=== PATIENT | female | born 1980 | race African-American/Black ===

== ENCOUNTER 2018-11-20 06:33 | Inpatient (IN) | payer BC ==
[~2018-11-20] VITALS: Ht 160 cm; Wt 256.3 kg
--- NOTE | 2018-11-20 07:08 | NUR ---
bedside report handed off to aníbal grace via sbar. pt stable, call light within reach, will continue to monitor.
[2018-11-20 08:22] LABS: % SATURATION 4 % (15-55); IRON 31 ug/dl (35-150); TOTAL IRON BIND CAPACITY 628 ug/dl (260-445)
[2018-11-20 08:25] LABS: UNSAT IRON BIND CAPACITY 597 ug/dl (150-375)
[2018-11-20 08:46] LABS: EOSINOPHILS 0.9 % (0-7); IMMATURE GRANULOCYTES 0.4 % (0-5); LYMPHOCYTES 15.3 % (15-50); MCV 66.3 fL (80.0-100.0); MEAN PLATELET VOLUME 8.4 fL (7.4-10.4); MONOCYTES 8.1 % (2-11); NEUTROPHILS 74.3 % (40-80); PLATELET COUNT 349 10x3/uL (130-400); RBC 3.77 10x6/uL (4.00-5.40); RDW 25.5 % (11.5-14.5); WBC 12.3 10x3/uL (4.8-10.8)
[2018-11-20 08:50] LABS: FERRITIN 6 ng/mL (3-244); HEMOGLOBIN 6.5 g/dL (12-16); MCH 17.2 pg (26.0-34.0)
[2018-11-20 08:51] LABS: ALBUMIN 2.7 g/dL (3.4-5.0); ANION GAP 13.5 mmol/L (8-16); BILIRUBIN - TOTAL 0.83 mg/dL (0.2-1.3); CALCIUM 8.7 mg/dL (8.5-10.1); CARBON DIOXIDE 30.1 mmol/L (21.0-32.0); CREATININE - SERUM 1.1 mg/dL (0.6-1.3); POTASSIUM - SERUM 4.6 mmol/L (3.5-5.1); PROTEIN - SERUM 7.9 g/dL (6.4-8.2)
--- NOTE | 2018-11-20 09:55 | NUR ---
SPOKE TO DR LOREDO REGARDING PATIENT'S FAMILY'S REQUEST FOR PAIN MEDICINE X 2. DR. LOREDO ORDERED TYLENOL. ADMISTERED PER APR.
--- NOTE | 2018-11-20 10:59 | NUR ---
SPOKE TO DR LOREDO REGARDING HGB OF 6.5. NO NEW ORDERS.
[2018-11-20 12:01] VITALS: BP 130/88
[2018-11-20 14:01] VITALS: BP 12/68
--- NOTE | 2018-11-20 15:04 | NUR ---
PT TO BE ADMITTED TO ROOM 2201. REPORT TO MATEO AT 2261.
[2018-11-20 16:50] VITALS: BP 115/74; BMI 100.3
--- NOTE | 2018-11-20 16:56 | MORECARE ---
CASE MANAGEMENT DISCHARGE SUMMARY PATIENT: REYNALDO DEE UNIT: [id number] ADM DATE: 11/20/18 AGE: 38 : 78 SEX: F ROOM/BED: D.2201 AUTHOR: SANDI WELLS PHYSICIAN: REFERRING PHYSICIAN: LIZETH LOREDO MD DATE OF SERVICE: 11/20/18 Discharge Plan Patient Name: REYNALDO DEE [facility] [facility] 1980 Planned Disposition: Home Anticipated Discharge Date: 11/22/18 Discharge Date: Expected LOS: 2 Initial Reviewer: [email or web address] Initial Review Date: 11/20/2018 Generated: 11/20/18 5:55 pm DCPIA - Discharge Planning Initial Assessment Updated by [email or web address]: Reyna Talamantes on 11/20/18 4:53 pm * Is the patient Alert and Oriented? Yes * How many steps to enter\exit or inside your home? none * PCP Dr. Alona Figueroa Totz * Pharmacy [facility] * Preadmission Environment Home with Family * ADLs Partial Dependent * Partial ADLs (Assistance needed) Ambulation Bathing Transfers * Equipment Shower Chair * List name and contact numbers for known caregivers / representatives who currently or will assist patient after discharge: Kody Dee - [facility] - [phone] * Verbal permission to speak to the caregivers and representatives has been obtained from the patient. Yes * Community resources currently utilized None * Additional services required to return to the preadmission environment? No * Can the patient safely return to the preadmission environment? Yes * Has this patient been hospitalized within the prior 30 days at any hospital? No Patient Name: REYNALDO DEE Page [phone] at 1656 All edits/amendments must be made on the electronic document DICTATION DATE: 11/20/181654 WIDE AREA NETWORK ADMINISTRATOR: DONIS 11/20/181654 RPT#: [id number] DC DATE: STATUS: ADM IN [facility] [address] [place] [address] END OF REPORT
--- NOTE | 2018-11-20 17:03 | MORECARE ---
CASE MANAGEMENT DISCHARGE SUMMARY PATIENT: REYNALDO DEE UNIT: [id number] ADM DATE: 11/20/18 AGE: 38 : 78 SEX: F ROOM/BED: D.2201 AUTHOR: PRISCILLADOC PHYSICIAN: REFERRING PHYSICIAN: LIZETH LOREDO MD DATE OF SERVICE: 11/20/18 Discharge Plan Patient Name: REYNALDO DEE Facility: [facility]:[place] : 1980 Planned Disposition: Home Anticipated Discharge Date: 11/22/18 Discharge Date: Expected LOS: 2 Initial Reviewer: [email or web address] Initial Review Date: 11/20/2018 Generated: 11/20/18 6:03 pm DCP- Discharge Planning Updated by [email or web address]: Reyna Talamantes on 11/20/18 3:[address] DC PLAN: Return home with her . ANTICIPATED DC NEEDS: Denied known dc needs in ER. CM met with patient and multiple other family members in the room to complete initial dc planning assessment. CM educated patient on the CM role and verbal consent given by patient to complete assessment. CM verified patient's address, phone number, and emergency contact phone numbers. Patient lives at home with her . She reports she is usually independent in her care but for the last week or so she has required assistance with ambulating, transferring, and bathing. At discharge patient plans to return home with her and feels this is a safe discharge. CM discussed availability of home health, rehab services, and medical equipment. Patient denied known discharge needs at this time. Patient reports her will transport her home at time of discharge. CM will continue to follow and will assist as needed with dc plans/needs. Reyna Talamantes RN, [facility] DCPIA - Discharge Planning Initial Assessment Updated by [email or web address]: Reyna Talamantes on 11/20/18 4:53 pm * Is the patient Alert and Oriented? Yes * How many steps to enter\exit or inside your home? none * PCP Dr. Alona Kirkpatrick * [facility] * Preadmission Environment Home with Family * ADLs Partial Dependent * Partial ADLs (Assistance needed) Ambulation Bathing Transfers * Equipment Shower Chair * List name and contact numbers for known caregivers / representatives who currently or will assist patient after discharge: Kody Dee - [facility] - [phone] * Verbal permission to speak to the caregivers and representatives has been obtained from the patient. Yes * Community resources currently utilized None * Additional services required to return to the preadmission environment? No * Can the patient safely return to the preadmission environment? Yes * Has this patient been hospitalized within the prior 30 days at any hospital? No Last DP export: 11/20/18 3:55 p Patient Name: REYNALDO DEE Page [phone] at 1703 All edits/amendments must be made on the electronic document DICTATION DATE: 11/20/181702 PAPER BAG MACHINE OPERATOR: DONIS 11/20/181702 RPT#: [id number] DC DATE: STATUS: ADM IN [facility] [address] [place] [address] END OF REPORT
[2018-11-20 21:28] VITALS: BP 154/86
[2018-11-21 01:13] VITALS: BP 139/78
--- NOTE | 2018-11-21 03:56 | NUR ---
I have reviewed this patient and I concur with the Shift Assessment completed by the Licensed Practical Nurse today this shift.
[2018-11-21 05:45] VITALS: BP 119/67
[2018-11-21 06:38] LABS: EOSINOPHILS 1.5 % (0-7); IMMATURE GRANULOCYTES 0.5 % (0-5); LYMPHOCYTES 15.2 % (15-50); MCHC 25.8 g/dL (31.0-37.0); MEAN PLATELET VOLUME 8.5 fL (7.4-10.4); MONOCYTES 8.7 % (2-11); NEUTROPHILS 73.1 % (40-80); PLATELET COUNT 338 10x3/uL (130-400); RBC 3.58 10x6/uL (4.00-5.40); RDW 25.1 % (11.5-14.5); WBC 10.5 10x3/uL (4.8-10.8)
[2018-11-21 06:42] LABS: MCH 17.3 pg (26.0-34.0)
[2018-11-21 06:43] LABS: HEMOGLOBIN 6.2 g/dL (12-16)
[2018-11-21 06:45] LABS: APTT 28.7 SECONDS (22.8-39.4); INR 1.29 (0.85-1.17); PROTIME 15.5 SECONDS (11.6-15.0)
[2018-11-21 07:09] LABS: ANION GAP 6.6 mmol/L (8-16); CALCIUM 8.4 mg/dL (8.5-10.1); CARBON DIOXIDE 34.7 mmol/L (21.0-32.0); MAGNESIUM - SERUM 2.4 mg/dL (1.8-2.4); PHOSPHOROUS 4.8 mg/dL (2.5-4.9); POTASSIUM - SERUM 4.3 mmol/L (3.5-5.1); THYROID STIMULATING HORMONE 4.94 uIU/mL (0.36-3.74)
[2018-11-21 08:11] VITALS: BP 115/62
--- NOTE | 2018-11-21 09:42 | NUR ---
PT ALERT X 4. BREATH SOUNDS CLEAR BILAT, 4L O2 PER NC. MIDLINE TO RIGHT UPPER ARM, PATENT, DRESSING CDI. PT REPORTING NO PAIN AT THIS TIME. CRUSTY AREA AROUND UMBILLICUS, YEAST TO ABDOMINAL FOLD. BLE EDEMA +2. FAMILY AT BEDSIDE. BED LOW, CALL LIGHT IN REACH. NO OTHER NEEDS AT THIS TIME.
--- NOTE | 2018-11-21 10:09 | MORECARE ---
CASE MANAGEMENT DISCHARGE SUMMARY PATIENT: REYNALDO DEE UNIT: [id number] ADM DATE: 11/20/18 AGE: 38 : 78 SEX: F ROOM/BED: D.2201 AUTHOR: PRISCILLADOC PHYSICIAN: REFERRING PHYSICIAN: LIZETH LOREDO MD DATE OF SERVICE: 11/21/18 Discharge Plan Patient Name: REYNALDO DEE Facility: [facility]:[place] : 1980 Planned Disposition: Home Anticipated Discharge Date: 11/22/18 Discharge Date: Expected LOS: 2 Initial Reviewer: [email or web address] Initial Review Date: 11/20/2018 Generated: 11/21/18 11:09 am DCP- Discharge Planning Updated by [email or web address]: Reyna Talamantes on 11/20/18 3:[address] DC PLAN: Return home with her . ANTICIPATED DC NEEDS: Denied known dc needs in ER. CM met with patient and multiple other family members in the room to complete initial dc planning assessment. CM educated patient on the CM role and verbal consent given by patient to complete assessment. CM verified patient's address, phone number, and emergency contact phone numbers. Patient lives at home with her . She reports she is usually independent in her care but for the last week or so she has required assistance with ambulating, transferring, and bathing. At discharge patient plans to return home with her and feels this is a safe discharge. CM discussed availability of home health, rehab services, and medical equipment. Patient denied known discharge needs at this time. Patient reports her will transport her home at time of discharge. CM will continue to follow and will assist as needed with dc plans/needs. Reyna Talamantes RN, [facility] DCPIA - Discharge Planning Initial Assessment Updated by [id number]: Reyna Talamantes on 11/20/18 4:53 pm * Is the patient Alert and Oriented? Yes * How many steps to enter\exit or inside your home? none * PCP Dr. Alona Kirkpatrick * [facility] * Preadmission Environment Home with Family * ADLs Partial Dependent * Partial ADLs (Assistance needed) Ambulation Bathing Transfers * Equipment Shower Chair * List name and contact numbers for known caregivers / representatives who currently or will assist patient after discharge: Kody Dee - [facility] - [phone] * Verbal permission to speak to the caregivers and representatives has been obtained from the patient. Yes * Community resources currently utilized None * Additional services required to return to the preadmission environment? No * Can the patient safely return to the preadmission environment? Yes * Has this patient been hospitalized within the prior 30 days at any hospital? No Last DP export: 11/20/18 4:03 p Patient Name: REYNALDO DEE Page [phone] at 1009 All edits/amendments must be made on the electronic document DICTATION DATE: 11/21/18 100 MOTORCYCLE REPAIR SHOP SUPERVISOR: DONIS 11/21/18 1008 RPT#: [id number] DC DATE: STATUS: ADM IN [facility] [address] [place] [address] END OF REPORT
[2018-11-21 13:02] VITALS: Ht 160 cm; Wt 256.3 kg
[2018-11-21 17:30] LABS: APPEARANCE CLEAR (CLEAR); BILIRUBIN NEGATIVE (NEGATIVE); COLOR YELLOW (YELLOW); GLUCOSE NEGATIVE (NEGATIVE); KETONE NEGATIVE (NEGATIVE); NITRITE NEGATIVE (NEGATIVE); PROTEIN TRACE mg/dL (NEGATIVE); SPECIFIC GRAVITY 1.015 (1.005-1.020); UROBILINOGEN NORMAL (NORMAL)
[2018-11-21 17:31] LABS: BACTERIA FEW /hpf (NEGATIVE); EPITHELIAL CELLS 0-5 /hpf (0-5); WHITE CELLS - URINE 0-5 /hpf (NEGATIVE)
--- NOTE | 2018-11-21 18:30 | NUR ---
A/O WITH NO SIGNS OF DISTRESS. MIDLINE TO THE RT UPPER ARM WITH NO REDNESS OR SWELLING NOTED AT SITE. NC @ 4L AND BE IN PLACE. NOTIFIED GUANACO LOCK, OF HGB-7.7. HE SAID THAT THE LEVEL WAS FINE AND DID NOT REQUIRE ANY ACTION. FAMILY REQUESTED FOR A1C. DENIES ANY FURTHER NEEDS AT THIS TIME. CONTINUE WITH PLAN OF CARE.
[2018-11-21 19:12] LABS: BASOPHILS 0.7 % (0-2); EOSINOPHILS 2.9 % (0-7); IMMATURE GRANULOCYTES 0.3 % (0-5); LYMPHOCYTES 12.6 % (15-50); MCHC 27.5 g/dL (31.0-37.0); MEAN PLATELET VOLUME 8.6 fL (7.4-10.4); MONOCYTES 7.1 % (2-11); NEUTROPHILS 76.4 % (40-80); PLATELET COUNT 308 10x3/uL (130-400); RBC 4.04 10x6/uL (4.00-5.40); RDW 26.1 % (11.5-14.5)
[2018-11-21 19:35] LABS: HEMOGLOBIN 7.7 g/dL (12-16); MCH 19.1 pg (26.0-34.0); MCV 69.3 fL (80.0-100.0); WBC 13.5 10x3/uL (4.8-10.8)
[2018-11-21 20:00] VITALS: BP 108/55
[2018-11-22] VITALS (12 sets, daily range): BP systolic 105–139; BP diastolic 58–83
[2018-11-22 05:36] LABS: BASOPHILS 0.5 % (0-2); EOSINOPHILS 2.8 % (0-7); HEMATOCRIT 26.9 % (36.0-48.0); IMMATURE GRANULOCYTES 0.6 % (0-5); LYMPHOCYTES 13.7 % (15-50); MCHC 27.1 g/dL (31.0-37.0); MCV 69.2 fL (80.0-100.0); MEAN PLATELET VOLUME 8.6 fL (7.4-10.4); MONOCYTES 7.8 % (2-11); NEUTROPHILS 74.6 % (40-80); PLATELET COUNT 301 10x3/uL (130-400); RBC 3.89 10x6/uL (4.00-5.40); RDW 26.7 % (11.5-14.5); WBC 11.7 10x3/uL (4.8-10.8)
[2018-11-22 05:41] LABS: ANION GAP 8.7 mmol/L (8-16); CALCIUM 8.4 mg/dL (8.5-10.1); CARBON DIOXIDE 33.7 mmol/L (21.0-32.0); MAGNESIUM - SERUM 2.2 mg/dL (1.8-2.4); POTASSIUM - SERUM 4.4 mmol/L (3.5-5.1)
[2018-11-22 06:22] LABS: HEMOGLOBIN 7.3 g/dL (12-16); MCH 18.8 pg (26.0-34.0)
--- NOTE | 2018-11-22 06:49 | NUR ---
NOTIFIED GUANACO LOCK OF CRITICAL HGB-7.3. STATED THAT THERE WAS NO ACTION NEEDED, DR. LOREDO WILL BE BY LATER. WILL PASS ON IN REPORT. CONTINUE WITH PLAN OF CARE.
--- NOTE | 2018-11-22 07:00 | NUR ---
DRESSING CHANGE TO THE RT UPPER ARM. SOME REDNESS NOTED AROUND SITE. DENIES FURTHER NEEDS. CONTINUE WITH PLAN OF CARE.
--- NOTE | 2018-11-22 19:13 | NUR ---
PT IS WITHOUT DISTRESS.CONT PLAN OF CARE
--- NOTE | 2018-11-22 20:00 | NUR ---
1ST UNIT PRBC'S INFUSION COMPLETE. FLUSHED LINE WITH NS AND HUNG SCHEDULED IRON. PT C/O WEAKNESS AND APPEARS LETHARGIC. COMPLETE ASSESSMENT PER FLOW-SHEET. OXYGEN @ 4L/NC. VITALS SIGNS STABLE. WILL CONTINUE TO MONITOR.
--- NOTE | 2018-11-22 22:00 | NUR ---
VITALS SIGNS STABLE. BEGAN TRANSFUSION OF 2ND UNIT PRBC'S. VITALS SIGNS REMAIN STABLE AFTER 15 MINUTES OF INFUSING - INCREASED RATE OF INFUSION. NO TRANSFUSION REACTION NOTED SO FAR. WILL CONTINUE TO MONITOR.
[2018-11-23] VITALS: BP 116/55
--- NOTE | 2018-11-23 00:09 | NUR ---
PRBC'S TRANSFUSION COMPLETE. VITAL SIGNS STABLE. NO ADVERSE REACTIONS NOTED. WILL CONTINUE TO MONITOR.
--- NOTE | 2018-11-23 02:00 | NUR ---
PT TOO WEAK TO AMBULATE TO BATHROOM. PT HAD LARGE SOFT BROWN STOOL ON BEDPAN. BEDBATH GIVEN. PADS AND GOWN CHANGED. PULLED PT UP AND REPOSITIONED. NO OTHER NEEDS. WILL CONTINUE TO MONITOR.
[2018-11-23 04:00] VITALS: BP 120/56
[2018-11-23 06:06] LABS: ANION GAP 10.9 mmol/L (8-16); CALCIUM 8.4 mg/dL (8.5-10.1); CARBON DIOXIDE 32.4 mmol/L (21.0-32.0); MAGNESIUM - SERUM 2.2 mg/dL (1.8-2.4); PHOSPHOROUS 4.1 mg/dL (2.5-4.9); POTASSIUM - SERUM 4.3 mmol/L (3.5-5.1)
[2018-11-23 06:13] LABS: BASOPHILS 0.6 % (0-2); EOSINOPHILS 2.1 % (0-7); HEMATOCRIT 31.6 % (36.0-48.0); HEMOGLOBIN 8.6 g/dL (12-16); IMMATURE GRANULOCYTES 0.7 % (0-5); LYMPHOCYTES 10.7 % (15-50); MCH 20.2 pg (26.0-34.0); MCHC 27.2 g/dL (31.0-37.0); MEAN PLATELET VOLUME 8.7 fL (7.4-10.4); MONOCYTES 9.2 % (2-11); NEUTROPHILS 76.7 % (40-80); PLATELET COUNT 244 10x3/uL (130-400); RBC 4.26 10x6/uL (4.00-5.40); RDW 27.4 % (11.5-14.5); WBC 13.6 10x3/uL (4.8-10.8)
[2018-11-23 06:29] LABS: MCV 74.2 fL (80.0-100.0)
[2018-11-23 08:47] VITALS: BP 102/58
--- NOTE | 2018-11-23 10:52 | NUR ---
PATIENT REQUEST SOMETHING FOR HER DRY COUGH. I HAVE TALKED TO YARELIS LOCK ABOUT THIS. PATIENT WEIGHT IS 560.9 LB ACCORDING TO THE BED SCALE. ALL COVERS REMOVED EXCEPT THE SHEET ON HER AND THE PILLOW BEHIND HER HEAD. PATIENT REFUSING BIPAP. RESP TECH TURNED O2 UP TO 6L. PATIENT SAT IS 97%. TALKING PATIENT O2 SAT DROPPED TO 94%. CONCERNED THAT NO CT IS ABLE TO BE TAKEN OF HER ABDOMEN. WANTS AN ABDOMINAL ULTRASOUND. CONCERNED THAT SHE HAS A FIBROID TUMOR. CL IN PLACE. 2 ORANGE JUICES REQUESTED AND RECIEVED. MOTHER IN ROOM. INFORMED MOTHER TO LET ME KNOW IF PATIENT FALLS ASLEEP SO I CAN MONITOR HER PULSE OX WHILE SHE IS SLEEPING. WCTM
[2018-11-23 13:38] VITALS: BP 106/61
--- NOTE | 2018-11-23 14:55 | NUR ---
OT NOTE: PT COMPLETED LUE AROM EXS. PT COMPLETED BED MOB TASK WITH SIDE RAIL. PT STATED SHE IS TOO WEAK TO SIT UP. THANK YOU, SHABBIR PIÑA
[2018-11-23 16:45] VITALS: BP 110/62
--- NOTE | 2018-11-23 17:29 | NUR ---
ATTEMPTED TO PLACE PT ON BIPAP THIS MORNING WITH SETTINGS OF 16/8 PT REFUSED TO WEAR THE BIPAP
--- NOTE | 2018-11-23 17:30 | NUR ---
ATTEMPTED TO PLACE PATIENT AGAIN ON BIPAP AT 1400. PATIENT TRIED HOLDING THE BIPAP MASK ON HER FACE WITH A LOWER SETTING OF 12/5 BUT PT STILL REFUSED AGAIN TO WEAR IT AND SAID IT WAS TO MUCH FOR HER TO HANDLE
--- NOTE | 2018-11-23 18:02 | MORECARE ---
CASE MANAGEMENT DISCHARGE SUMMARY PATIENT: REYNALDO DEE UNIT: [id number] ADM DATE: 11/20/18 AGE: 38 : 78 SEX: F ROOM/BED: D.2201 AUTHOR: SANDI WELLS PHYSICIAN: REFERRING PHYSICIAN: LIZETH LOREDO MD DATE OF SERVICE: 11/23/18 Discharge Plan Patient Name: REYNALDO DEE Facility: [facility]:[place] : 1980 Planned Disposition: Home Anticipated Discharge Date: 11/22/18 Discharge Date: Expected LOS: 2 Initial Reviewer: [email or web address] Initial Review Date: 11/20/2018 Generated: 11/23/18 7:01 pm Comments DCP- Discharge Planning Updated by [email or web address]: Lisset Barrera on 11/23/18 4:[address] DC PLAN: Return home with her . ANTICIPATED DC NEEDS: Denied known dc needs in ER. CM met with patient and multiple other family members in the room to complete initial dc planning assessment. CM educated patient on the CM role and verbal consent given by patient to complete assessment. CM verified patient's address, phone number, and emergency contact phone numbers. Patient lives at home with her . She reports she is usually independent in her care but for the last week or so she has required assistance with ambulating, transferring, and bathing. At discharge patient plans to return home with her and feels this is a safe discharge. CM discussed availability of home health, rehab services, and medical equipment. Patient denied known discharge needs at this time. Patient reports her will transport her home at time of discharge. CM will continue to follow and will assist as needed with dc plans/needs. Reyna Talamantes RN, [facility] DCPIA - Discharge Planning Initial Assessment Updated by [email or web address]: Reyna Talamantes on 11/20/18 4:53 pm * Is the patient Alert and Oriented? Yes * How many steps to enter\exit or inside your home? none * PCP Dr. Alona Kirkpatrick * [facility] * Preadmission Environment Home with Family * ADLs Partial Dependent * Partial ADLs (Assistance needed) Ambulation Bathing Transfers * Equipment Shower Chair * List name and contact numbers for known caregivers / representatives who currently or will assist patient after discharge: Kody Dee - - [phone] * Verbal permission to speak to the caregivers and representatives has been obtained from the patient. Yes * Community resources currently utilized None * Additional services required to return to the preadmission environment? No * Can the patient safely return to the preadmission environment? Yes * Has this patient been hospitalized within the prior 30 days at any hospital? No Last DP export: 11/21/18 9:09 a Patient Name: REYNALDO DEE Page [phone] at 1802 All edits/amendments must be made on the electronic document DICTATION DATE: 11/23/181800 BRIQUETTE MACHINE OPERATOR: DONIS 11/23/181800 RPT#: [id number] DC DATE: STATUS: ADM IN [facility] [address] [place] [address] END OF REPORT
--- NOTE | 2018-11-23 18:09 | MORECARE ---
CASE MANAGEMENT DISCHARGE SUMMARY PATIENT: REYNALDO DEE UNIT: [id number] ADM DATE: 11/20/18 AGE: 38 : 78 SEX: F ROOM/BED: D.2201 AUTHOR: PRISCILLA,DOC PHYSICIAN: REFERRING PHYSICIAN: LIZETH LOREDO MD DATE OF SERVICE: 11/23/18 Discharge Plan Patient Name: REYNALDO DEE Facility: [facility]:[place] : 1980 Planned Disposition: Home Anticipated Discharge Date: 11/22/18 Discharge Date: Expected LOS: 2 Initial Reviewer: [email or web address] Initial Review Date: 11/20/2018 Generated: 11/23/18 7:09 pm DCP- Discharge Planning Updated by [email or web address]: Lisset Barrera on 11/23/18 5:[address] Patient is on 4L O2 NC with a pox of 85-87%, When O2 is removed drops to 73-76%. MARCELA with [facility] for home O2, Holland here and clinical information received. She will deliver to hospital when patient is ready for DC. After speaking with Bebo he would like to keep the patient through the weekend to observe her and treat her resp status. He would also like her to have a Triliogy, but will need prior auth and on the weekend that will not happen. Will need to send to [facility] on Monday. Jana LOCK spoke with patient and mother at length about plan of care. Patient is tearful and scared. Mom at bedside questions answered. Mom request a wheelchair for her, but I explained to her that I did not think that insurance would not pay for one when she was ambulatory. I did ask Holland with [facility] if they carried bariatric ones and they do not. CM to follow and assist with DC planning DCP- Discharge Planning Updated by [id number]: Lisset Barrera on 11/23/18 4:[address] DC PLAN: Return home with her . ANTICIPATED DC NEEDS: Denied known dc needs in ER. CM met with patient and multiple other family members in the room to complete initial dc planning assessment. CM educated patient on the CM role and verbal consent given by patient to complete assessment. CM verified patient's address, phone number, and emergency contact phone numbers. Patient lives at home with her . She reports she is usually independent in her care but for the last week or so she has required assistance with ambulating, transferring, and bathing. At discharge patient plans to return home with her and feels this is a safe discharge. CM discussed availability of home health, rehab services, and medical equipment. Patient denied known discharge needs at this time. Patient reports her will transport her home at time of discharge. CM will continue to follow and will assist as needed with dc plans/needs. Reyna Talamantes RN, [facility] DCPIA - Discharge Planning Initial Assessment Updated by [email or web address]: Reyna Talamantes on 11/20/18 4:53 pm * Is the patient Alert and Oriented? Yes * How many steps to enter\exit or inside your home? none * PCP Dr. Alona Kirkpatrick * [facility] * Preadmission Environment Home with Family * ADLs Partial Dependent * Partial ADLs (Assistance needed) Ambulation Bathing Transfers * Equipment Shower Chair * List name and contact numbers for known caregivers / representatives who currently or will assist patient after discharge: Kody Dee - - [phone] * Verbal permission to speak to the caregivers and representatives has been obtained from the patient. Yes * Community resources currently utilized None * Additional services required to return to the preadmission environment? No * Can the patient safely return to the preadmission environment? Yes * Has this patient been hospitalized within the prior 30 days at any hospital? No Coverage Notice Reviewer: [email or web address] Henry Barrera Notice Issued Date-Time: 11/23/2018 15:00 Notice Type: Patient Choice Letter Notice Delivered To: Family Member Relationship to Patient: Mother Switch Foreman Name: monse Delivery Method: - Alysha Days: Prior Verbal Notification: Recipient Understood Notice: Recipient Signature: Med Rec Note Co-signed by Attending: Coverage Notice Comment: Last DP export: 11/23/18 5:02 p Patient Name: REYNALDO DEE Page [phone] at 1809 All edits/amendments must be made on the electronic document DICTATION DATE: 11/23/181808 BAND SCROLL SAW OPERATOR: DONIS 11/23/181808 RPT#: [id number] DC DATE: STATUS: ADM IN [facility] [address] [place] [address] END OF REPORT
[2018-11-23 18:24] LABS: HEMATOCRIT 32.3 % (36.0-48.0); HEMOGLOBIN 8.7 g/dL (12-16)
[2018-11-23 20:00] VITALS: BP 106/55
[2018-11-24] VITALS: BP 130/51
--- NOTE | 2018-11-24 02:00 | NUR ---
PT IS NOT GOING TO WEAR THE BIPAP. IT HAS BEEN DISCUSSED WITH HER AND SHE WILL NOT WEAR IT.
[2018-11-24 06:44] LABS: CALCIUM 8.6 mg/dL (8.5-10.1); CARBON DIOXIDE 36.2 mmol/L (21.0-32.0); CREATININE - SERUM 0.9 mg/dL (0.6-1.3); MAGNESIUM - SERUM 2.1 mg/dL (1.8-2.4); PHOSPHOROUS 3.9 mg/dL (2.5-4.9); POTASSIUM - SERUM 4.2 mmol/L (3.5-5.1)
[2018-11-24 06:49] LABS: BASOPHILS 0.6 % (0-2); EOSINOPHILS 2.7 % (0-7); HEMATOCRIT 32.3 % (36.0-48.0); HEMOGLOBIN 8.6 g/dL (12-16); IMMATURE GRANULOCYTES 0.7 % (0-5); LYMPHOCYTES 12.8 % (15-50); MCH 20.2 pg (26.0-34.0); MCHC 26.6 g/dL (31.0-37.0); MCV 75.8 fL (80.0-100.0); MEAN PLATELET VOLUME 8.7 fL (7.4-10.4); MONOCYTES 7.8 % (2-11); NEUTROPHILS 75.4 % (40-80); RBC 4.26 10x6/uL (4.00-5.40); RDW 28.8 % (11.5-14.5); WBC 12.6 10x3/uL (4.8-10.8)
[2018-11-24 06:51] LABS: PLATELET COUNT 296 10x3/uL (130-400)
--- NOTE | 2018-11-24 07:15 | NUR ---
PT RESTING IN BED WITH EYES CLOSED, FAMILY AT THE BEDSIDE. EASILY AROUSED TO SPEECH, ALERT AND ORIENTED. CURRENTLY RCVING 4L VIA NC. RIGHT MIDLINE SALINE LOCKED. NO S/S OF DISTRESS, DENIES NEEDS AT THIS TIME, WILL CONT TO MONITOR.
[2018-11-24 08:46] VITALS: BP 128/80
--- NOTE | 2018-11-24 10:26 | NUR ---
PT RESTING IN BED ASKING ABOUT DC PAPERS, I INFORMED HER THERE HAS BEEN NO DC ORDERS PUT IN AND SHE SAID SHE IS LEAVING TODAY WITH OR WITHOUT THEM. INFORMED ASHVIN SCHWAB WHO IS GOING TO GO TALK TO HER.
--- NOTE | 2018-11-24 11:04 | NUR ---
SPOKE WITH AT THE REQUEST OF ASHVIN SCHWAB ABOUT APPROVING A DC. HE SAID HE WAS OK WITH IT IF SHE IS AWARE AND HAS A WAY TO OBTAIN TRILOGY FOR HOME AND KNOWS TO HAVE A FOLLOW UP APPT WITH PULMONOLIGIST AFTER DC.
--- NOTE | 2018-11-24 11:43 | NUR ---
CONFIRMED WITH KENYA SCHWAB APN, PT HAS NO DISCHARGE MEDICATIONS.
--- NOTE | 2018-11-24 13:17 | NUR ---
MIDLINE IV REMOVED AND BE CATHETER REMOVED.
--- NOTE | 2018-11-24 13:50 | NUR ---
PT DC`D HOME VIA WHEELCHAIR WITH FAMILY.
--- NOTE | 2018-11-24 18:36 | MORECARE ---
CASE MANAGEMENT DISCHARGE SUMMARY PATIENT: REYNALDO DEE UNIT: [id number] ADM DATE: 11/20/18 AGE: 38 : 78 SEX: F ROOM/BED: D.2201 AUTHOR: PRISCILLA,DOC PHYSICIAN: REFERRING PHYSICIAN: LIZETH LOREDO MD DATE OF SERVICE: 11/24/18 Discharge Plan Patient Name: REYNALDO DEE Facility: [facility]:[place] : 1980 Planned Disposition: Home Anticipated Discharge Date: 11/22/18 Discharge Date: 11/24/2018 Expected LOS: 2 Initial Reviewer: [id number] Initial Review Date: 11/20/2018 Generated: 11/24/18 7:36 pm DCP- Discharge Planning Updated by [email or web address]: Lisset Barrera on 11/23/18 5:[address] Patient is on 4L O2 NC with a pox of 85-87%, When O2 is removed drops to 73-76%. MARCELA with [facility] for home O2, Holland here and clinical information received. She will deliver to hospital when patient is ready for DC. After speaking with Bebo he would like to keep the patient through the weekend to observe her and treat her resp status. He would also like her to have a Triliogy, but will need prior auth and on the weekend that will not happen. Will need to send to [facility] on Monday. Jana LOCK spoke with patient and mother at length about plan of care. Patient is tearful and scared. Mom at bedside questions answered. Mom request a wheelchair for her, but I explained to her that I did not think that insurance would not pay for one when she was ambulatory. I did ask Holland with [facility] if they carried bariatric ones and they do not. CM to follow and assist with DC planning DCP- Discharge Planning Updated by [id number]: Lisset Barrera on 11/23/18 4:[address] DC PLAN: Return home with her . ANTICIPATED DC NEEDS: Denied known dc needs in ER. CM met with patient and multiple other family members in the room to complete initial dc planning assessment. CM educated patient on the CM role and verbal consent given by patient to complete assessment. CM verified patient's address, phone number, and emergency contact phone numbers. Patient lives at home with her . She reports she is usually independent in her care but for the last week or so she has required assistance with ambulating, transferring, and bathing. At discharge patient plans to return home with her and feels this is a safe discharge. CM discussed availability of home health, rehab services, and medical equipment. Patient denied known discharge needs at this time. Patient reports her will transport her home at time of discharge. CM will continue to follow and will assist as needed with dc plans/needs. Reyna Talamantes RN, [facility] DCPIA - Discharge Planning Initial Assessment Updated by [email or web address]: Reyna Talamantes on 11/20/18 4:53 pm * Is the patient Alert and Oriented? Yes * How many steps to enter\exit or inside your home? none * PCP Dr. Alona Kirkpatrick * Pharmacy [facility] * Preadmission Environment Home with Family * ADLs Partial Dependent * Partial ADLs (Assistance needed) Ambulation Bathing Transfers * Equipment Shower Chair * List name and contact numbers for known caregivers / representatives who currently or will assist patient after discharge: Kody Dee - - [phone] * Verbal permission to speak to the caregivers and representatives has been obtained from the patient. Yes * Community resources currently utilized None * Additional services required to return to the preadmission environment? No * Can the patient safely return to the preadmission environment? Yes * Has this patient been hospitalized within the prior 30 days at any hospital? No Coverage Notice Reviewer: [id number] Henry Barrera Notice Issued Date-Time: 11/23/2018 15:00 Notice Type: Patient Choice Letter Notice Delivered To: Family Member Relationship to Patient: Mother Home Appliance Washing Machine Mechanic Name: monse Delivery Method: HAND - Hand Delivered Alysha Days: Prior Verbal Notification: Recipient Understood Notice: Yes Recipient Signature: Yes Med Rec Note Co-signed by Attending: Coverage Notice Comment: MARCELA for [employer] for home O2 Last DP export: 11/23/18 5:09 p Patient Name: REYNALDO DEE Page [id number] at 1836 All edits/amendments must be made on the electronic document DICTATION DATE: 11/24/181835 ORANGE GROWER: DONIS 11/24/181835 RPT#: [id number] DC DATE:11/24/18 STATUS: DIS IN [facility] [address] [place] [address] END OF REPORT
--- NOTE | 2018-11-24 18:43 | MORECARE ---
CASE MANAGEMENT DISCHARGE SUMMARY PATIENT: REYNALDO DEE UNIT: [id number] ADM DATE: 11/20/18 AGE: 38 : 78 SEX: F ROOM/BED: D.2201 AUTHOR: PRISCILLADOC PHYSICIAN: REFERRING PHYSICIAN: LIZETH LOREDO MD DATE OF SERVICE: 11/24/18 Discharge Plan Patient Name: REYNALDO DEE Facility: [facility]:[place] : 1980 Planned Disposition: Home Anticipated Discharge Date: 11/22/18 Discharge Date: 11/24/2018 Expected LOS: 2 Initial Reviewer: [id number] Initial Review Date: 11/20/2018 Generated: 11/24/18 7:43 pm Comments DCP- Discharge Planning Updated by [email or web address]: Jojo Beck on 11/24/18 5:[address] LATE ENTRY DAVIN LOCK, [facility] PULMONALGIST IS AWARE OF PATIENT'S PLAN TO DISCHARGE TODAY WITHOUT TRILOGY. PATIENT AND FAMILY ADAMENT ABOUT BEING DISCHARGED TODAY. X/R DISC COPY REQUESTED FOR PATIENT'S MD. DISCHARGE SUMMARY, PULMONARY CONSULT AND DISCHARGE MED LIST FOR PRIMARY MD PROVIDED FOR F/U CARE. DCP- Discharge Planning Updated by [email or web address]: Lisset Barrera on 11/23/18 5:[address] Patient is on 4L O2 NC with a pox of 85-87%, When O2 is removed drops to 73-76%. MARCELA with [facility] for home O2, [facility] here and clinical information received. She will deliver to hospital when patient is ready for DC. After speaking with Bebo he would like to keep the patient through the weekend to observe her and treat her resp status. He would also like her to have a Triliogy, but will need prior auth and on the weekend that will not happen. Will need to send to [facility] on Monday. Jana LOCK spoke with patient and mother at length about plan of care. Patient is tearful and scared. Mom at bedside questions answered. Mom request a wheelchair for her, but I explained to her that I did not think that insurance would not pay for one when she was ambulatory. I did ask Holland with [facility] if they carried bariatric ones and they do not. CM to follow and assist with DC planning DCP- Discharge Planning Updated by [id number]: Lisset Barrera on 11/23/18 4:[address] DC PLAN: Return home with her . ANTICIPATED DC NEEDS: Denied known dc needs in ER. CM met with patient and multiple other family members in the room to complete initial dc planning assessment. CM educated patient on the CM role and verbal consent given by patient to complete assessment. CM verified patient's address, phone number, and emergency contact phone numbers. Patient lives at home with her . She reports she is usually independent in her care but for the last week or so she has required assistance with ambulating, transferring, and bathing. At discharge patient plans to return home with her and feels this is a safe discharge. CM discussed availability of home health, rehab services, and medical equipment. Patient denied known discharge needs at this time. Patient reports her will transport her home at time of discharge. CM will continue to follow and will assist as needed with dc plans/needs. Reyna Talamantes RN, [facility] DCPIA - Discharge Planning Initial Assessment Updated by [email or web address]: Reyna Talamantes on 11/20/18 4:53 pm * Is the patient Alert and Oriented? Yes * How many steps to enter\exit or inside your home? none * PCP Dr. Alona Kirkpatrick * [facility]acy [facility] * Preadmission Environment Home with Family * ADLs Partial Dependent * Partial ADLs (Assistance needed) Ambulation Bathing Transfers * Equipment Shower Chair * List name and contact numbers for known caregivers / representatives who currently or will assist patient after discharge: Kody Dee - - [phone] * Verbal permission to speak to the caregivers and representatives has been obtained from the patient. Yes * Community resources currently utilized None * Additional services required to return to the preadmission environment? No * Can the patient safely return to the preadmission environment? Yes * Has this patient been hospitalized within the prior 30 days at any hospital? No Coverage Notice Reviewer: [id number] - Lisset Barrera Notice Issued Date-Time: 11/23/2018 15:00 Notice Type: Patient Choice Letter Notice Delivered To: Family Member Relationship to Patient: Mother Surgical Supervisor Name: monse Delivery Method: HAND - Hand Delivered Alysha Days: Prior Verbal Notification: Recipient Understood Notice: Yes Recipient Signature: Yes Med Rec Note Co-signed by Attending: Coverage Notice Comment: MARCELA for [employer] for home O2 Last DP export: 11/24/18 5:36 p Patient Name: REYNALDO DEE Page [phone] at 1843 All edits/amendments must be made on the electronic document DICTATION DATE: 11/24/181842 GAUGE MAKER: DONIS 11/24/181842 RPT#: [id number] DC DATE:11/24/18 STATUS: DIS IN [facility] [address] [place] [address] END OF REPORT
--- NOTE | 2018-11-26 08:47 | MORECARE ---
CASE MANAGEMENT DISCHARGE SUMMARY PATIENT: REYNALDO DEE UNIT: [id number] ADM DATE: 11/20/18 AGE: 38 : 78 SEX: F ROOM/BED: D.2201 AUTHOR: PRISCILLADOC PHYSICIAN: REFERRING PHYSICIAN: LIZETH LOREDO MD DATE OF SERVICE: 11/26/18 Discharge Plan Patient Name: REYNALDO DEE Facility: [facility]:[place] : 1980 Planned Disposition: Home Anticipated Discharge Date: 11/22/18 Discharge Date: 11/24/2018 Expected LOS: 2 Initial Reviewer: [email or web address] Initial Review Date: 11/20/2018 Generated: 11/26/18 9:46 am Comments DCP- Discharge Planning Updated by [email or web address]: Jojo Beck on 11/24/18 5:[address] LATE ENTRY DAVIN LOCK, [facility] PULMONALGIST IS AWARE OF PATIENT'S PLAN TO DISCHARGE TODAY WITHOUT TRILOGY. PATIENT AND FAMILY ADAMENT ABOUT BEING DISCHARGED TODAY. X/R DISC COPY REQUESTED FOR PATIENT'S MD. DISCHARGE SUMMARY, PULMONARY CONSULT AND DISCHARGE MED LIST FOR PRIMARY MD PROVIDED FOR F/U CARE. DCP- Discharge Planning Updated by [email or web address]: Lisset Barrera on 11/23/18 5:[address] Patient is on 4L O2 NC with a pox of 85-87%, When O2 is removed drops to 73-76%. MARCELA with [facility] for home O2, [facility] here and clinical information received. She will deliver to hospital when patient is ready for DC. After speaking with Bebo he would like to keep the patient through the weekend to observe her and treat her resp status. He would also like her to have a Triliogy, but will need prior auth and on the weekend that will not happen. Will need to send to [facility] on Monday. Jana LOCK spoke with patient and mother at length about plan of care. Patient is tearful and scared. Mom at bedside questions answered. Mom request a wheelchair for her, but I explained to her that I did not think that insurance would not pay for one when she was ambulatory. I did ask [facility] with [facility] if they carried bariatric ones and they do not. CM to follow and assist with DC planning DCP- Discharge Planning Updated by [id number]: Lisset Barrera on 11/23/18 4:[address] DC PLAN: Return home with her . ANTICIPATED DC NEEDS: Denied known dc needs in ER. CM met with patient and multiple other family members in the room to complete initial dc planning assessment. CM educated patient on the CM role and verbal consent given by patient to complete assessment. CM verified patient's address, phone number, and emergency contact phone numbers. Patient lives at home with her . She reports she is usually independent in her care but for the last week or so she has required assistance with ambulating, transferring, and bathing. At discharge patient plans to return home with her and feels this is a safe discharge. CM discussed availability of home health, rehab services, and medical equipment. Patient denied known discharge needs at this time. Patient reports her will transport her home at time of discharge. CM will continue to follow and will assist as needed with dc plans/needs. Reyna Talamantes RN, [facility] DCPIA - Discharge Planning Initial Assessment Updated by [email or web address]: Reyna Talamantes on 11/20/18 4:53 pm * Is the patient Alert and Oriented? Yes * How many steps to enter\exit or inside your home? none * PCP Dr. Alona Kirkpatrick * [facility] * Preadmission Environment Home with Family * ADLs Partial Dependent * Partial ADLs (Assistance needed) Ambulation Bathing Transfers * Equipment Shower Chair * List name and contact numbers for known caregivers / representatives who currently or will assist patient after discharge: Kody Dee - - [phone] * Verbal permission to speak to the caregivers and representatives has been obtained from the patient. Yes * Community resources currently utilized None * Additional services required to return to the preadmission environment? No * Can the patient safely return to the preadmission environment? Yes * Has this patient been hospitalized within the prior 30 days at any hospital? No Coverage Notice Reviewer: [id number] - Lisset Barrera Notice Issued Date-Time: 11/23/2018 15:00 Notice Type: Patient Choice Letter Notice Delivered To: Family Member Relationship to Patient: Mother Tourism Radio Presenter Name: monse Delivery Method: HAND - Hand Delivered Alysha Days: Prior Verbal Notification: Recipient Understood Notice: Yes Recipient Signature: Yes Med Rec Note Co-signed by Attending: Coverage Notice Comment: MARCELA for [employer] for home O2 Last DP export: 11/24/18 5:43 p Patient Name: REYNALDO DEE Page [id number] at 0847 All edits/amendments must be made on the electronic document DICTATION DATE: 11/26/18845 DRAIN CLEANER PLUMBER: DONIS 11/26/1846 RPT#: [id number] DC DATE:11/24/18 STATUS: DIS IN [facility] [address] [facility] [place] [address] END OF REPORT
== END 2018-11-24 13:51 | disposition home or self-care (01) | DRG 291 ==
LOC: D.ER 06:33 → D.MS 14:30
PROVIDERS: Family Medicine; ADMIT Internal Medicine Nephrology; ATTEND Internal Medicine Nephrology
PROC: 05HB33Z Insertion of Infusion Device into Right Basilic Vein, Percutaneous Approach (ICD-10-PCS; principal; 2018-11-21)
DX: I50.43 Acute on chronic combined systolic (congestive) and diastolic (congestive) heart failure (principal); J96.21 Acute and chronic respiratory failure with hypoxia; E66.2 Morbid (severe) obesity with alveolar hypoventilation; L03.311 Cellulitis of abdominal wall; Z68.45 Body mass index [BMI] 70 or greater, adult; J98.11 Atelectasis; D50.0 Iron deficiency anemia secondary to blood loss (chronic); E66.01 Morbid (severe) obesity due to excess calories; E03.9 Hypothyroidism, unspecified; I07.1 Rheumatic tricuspid insufficiency; N92.1 Excessive and frequent menstruation with irregular cycle; I34.0 Nonrheumatic mitral (valve) insufficiency